=== PATIENT | male | born 1950 | race Caucasian/White ===

== ENCOUNTER 2017-05-02 13:54 | Emergency (ER) | payer MEDICARE ==
[~2017-05-02] VITALS: Ht 188 cm; Wt 95.0 kg
[2017-05-02 13:59] VITALS: BP 142/81; PULSE 61; RESP 16; TEMP 100.4; O2SAT 100
[2017-05-02 14:13] VITALS: BP 149/89; PULSE 63; RESP 13; O2SAT 99
[2017-05-02] MEDS ORDERED: LOSA100T7 (14:15)
--- NOTE | 2017-05-02 16:04 | RADRPT ---
EXAM DATE/TIME: 05/02/2017 15:47 [facility] COMPARISON: No previous studies available for comparison. INDICATIONS : Trauma, fall from ladder today onto head. RADIATION DOSE: 36.51 CTDIvol (mGy) MEDICAL HISTORY : Aneurysm, abdominal. Hypertension. SURGICAL HISTORY : None. ENCOUNTER: Initial ACUITY: 1 day PAIN SCALE: 7/10 LOCATION: Bilateral occipital head TECHNIQUE: Multiple contiguous axial images were obtained of the head. Using automated exposure control and adj ustment of the mA and/or kV according to patient size, radiation dose was kept as low as reasonably a chievable to obtain optimal diagnostic quality images. DICOM format image data is available electro nically for review and comparison. FINDINGS: CEREBRUM: The ventricles are normal for age. No evidence of midline shift, mass lesion, hemorrhage or acute in farction. No extra-axial fluid collections are seen. POSTERIOR FOSSA: The cerebellum and brainstem are intact. The 4th ventricle is midline. The cerebellopontine angle i s unremarkable. EXTRACRANIAL: The visualized portion of the orbits is intact. SKULL: The calvaria is intact. No evidence of skull fracture. CONCLUSION: 1. No acute intracranial abnormalities. Cameron Rodgers MD on May 02, 2017 at 15:59 Board Certified Radiologist. This report was verified electronically.
--- NOTE | 2017-05-02 16:07 | RADRPT ---
EXAM DATE/TIME: 05/02/2017 15:47 [facility] COMPARISON: No previous studies available for comparison. INDICATIONS : Trauma, fall from ladder today onto head. RADIATION DOSE: 22.40 CTDIvol (mGy) MEDICAL HISTORY : Aneurysm, abdominal. Hypertension. SURGICAL HISTORY : None. ENCOUNTER: Initial ACUITY: 1 day PAIN SCALE: 5/10 LOCATION: Bilateral neck TECHNIQUE: Volumetric scanning of the cervical spine was performed. Multiplanar reconstructions in the sagittal, coronal and oblique axial planes were performed. Using automated exposure control and adjustment o f the mA and/or kV according to patient size, radiation dose was kept as low as reasonably achievable to obtain optimal diagnostic quality images. DICOM format image data is available electronically f or review and comparison. FINDINGS: Thin section axial imaging of the cervical spine was performed. Sagittal and coronal imaging demonstrate adequate alignment of the vertebral bodies. No acute fractur es identified. C1/2: There are mild degenerative changes in the atlantodens joint. C2/3: The thecal space is adequate. The neural foramina are adequate. No significant abnormality is identif ied. C3/4: There is mild facet arthritis bilaterally. The thecal space and foramina are adequate. C4/5: The thecal space and neural foramina are adequate. There is mild facet arthritis on the left. C5/6: The thecal space and neural foramina appear adequate. There is mild facet arthritis bilaterally. C6/7: There is a degenerated disc. There is a small broad-based disc bulge. There is diffuse osteophytic ri dging of vertebral endplates. There is mild facet arthritis bilaterally. The thecal space and foramin a are adequate. C7/T1: The thecal space is adequate. The neural foramina are adequate. No significant abnormality is identif ied. CONCLUSION: 1. Degenerative changes throughout the cervical spine as noted above. 2. No acute cervical spine fracture identified. Beto Whitt MD on May 02, 2017 at 16:01 Board Certified Radiologist. This report was verified electronically.
--- NOTE | 2017-05-02 16:44 | PD ---
HPI Chief Complaint: Fall Time Seen by Provider: 15:08 Travel History International Travel<30 days: No Contact w/Intl Traveler<30days: No Traveled to known affect area: No History of Present Illness HPI This is a 66-year-old male with no significant past medical history, who presents with complaints of head pain. The patient was cutting branches on a tree when the ladder slipped out from under him. He states he is roughly 10 feet up. He states he immediately grabbed hold of the tree and then pushed himself backwards onto the grass. He states when he fell backwards he struck the back of his head. who witnessed this states that he was confused and not answering questions for roughly 35-40 seconds. The patient had no other injury. He denies any neck pain back pain. He denies any abdominal pain. He does state that he thought he may have twisted his left ankle however he is able to bend it and flex it without difficulty and there is no pain with ambulation. The patient does have a history of a small aortic aneurysm. He states this is being followed by his doctor. He denies any abdominal pain at the time of my evaluation. PFSH Past Medical History Cardiovascular Problems: Yes (small AAA) High Cholesterol: Yes Hypertension: Yes Tetanus Vaccination: Unknown Influenza Vaccination: Yes Social History Alcohol Use: Yes (red wine daily, 2-3 glasses) Tobacco Use: No Substance Use: No Allergies-Medications (Allergen,Severity, Reaction): Coded Allergies: No Known Allergies (Unverified , 05/02/17) Reported Meds & Prescriptions Reported Meds & Active Scripts Active Reported Losartan-Hctz 100-25 mg Tab (Losartan/Hydrochlorothiazide) 100 Mg-25 Mg Tablet Review of Systems Except as stated in HPI: all other systems reviewed are Neg General / Constitutional: No: Fever, Chills HENT: Positive: Headaches, No: Neck Pain (Posterior occipital) Cardiovascular: No: Chest Pain or Discomfort, Palpitations Respiratory: No: Cough, Shortness of Breath Gastrointestinal: No: Nausea, Vomiting, Abdominal Pain Genitourinary: No: Incontinence Musculoskeletal: No: Weakness, Pain Neurologic: Positive: Headache, Other (Questionable decreased consciousness for 35-40 seconds. Normal now.), No: Weakness, Dizziness, Incontinence, Seizures, Sensory Disturbance Physical Exam Narrative GENERAL: Well-developed well-nourished male in no acute respiratory distress. SKIN: Focused skin assessment warm/dry. HEAD: Normocephalic. Subjective tenderness to the posterior occiput. No deformity or laceration or edema noted. EYES: Pupils equal and round. No scleral icterus. No injection or drainage. ENT: No nasal bleeding or discharge. Mucous membranes pink and moist. NECK: Trachea midline. Supple. CARDIOVASCULAR: Regular rate and rhythm. No murmur appreciated. RESPIRATORY: No accessory muscle use. Clear to auscultation. Breath sounds equal bilaterally. GASTROINTESTINAL: Abdomen soft, non-tender, nondistended. Hepatic and splenic margins not palpable. MUSCULOSKELETAL: No obvious deformities. No clubbing. No cyanosis. No edema. NEUROLOGICAL: Awake and alert. No obvious cranial nerve deficits. Motor grossly within normal limits. Normal speech. PSYCHIATRIC: Appropriate mood and affect; insight and judgment normal. Data Data Last Documented VS Vital Signs Date Time Temp Pulse Resp B/P (MAP) Pulse Ox O2 Delivery O2 Flow Rate FiO2 05/02/17 14:13 63 13 149/89 (109) 99 Room Air 05/02/17 13:[address] Brain W/O Iv Contrast(Rout) (05/02/17 15:23) Ct Cerv Spine W/O Contrast (05/02/17 15:23) MDM Medical Decision Making Medical Screen Exam Complete: Yes Emergency Medical Condition: Yes Differential Diagnosis Intracranial injury versus concussion versus scalp hematoma versus cervical spine injury. Narrative Course 66-year-old male who status post fall from 10 feet while cutting a tree. The patient had no loss of consciousness however was unresponsive to questions for 35-40 seconds. The patient has no focal neurologic deficit. He has pain in his occiput area. There is no vomiting. No diplopia. CT of the brain and C- spine show no evidence of acute injury. The patient likely has a concussion. He will be discharged home. His will be with him. She will be given a head injury sheet. He is instructed to return if he has any change in mental status, nausea vomiting. Or any other reason that concerns them. Diagnosis Primary Impression: Closed head injury with concussion Additional Impression: Mechanical fall Additional Instructions: Head injury precautions. Return if not acting normal, nausea vomiting, or any other reason. Tylenol for discomfort. Disposition: DISCHARGE HOME Condition: Stable Kip Morales MD May 02, 2017 16:44
== END 2017-05-02 17:07 | disposition home or self-care (01) ==
LOC: NEPE 13:54
DX: S06.0X9A Concussion with loss of consciousness of unspecified duration, initial encounter (principal); W11.XXXA Fall on and from ladder, initial encounter; Y93.H2 Activity, gardening and landscaping
CPT/HCPCS: 70450; 72125; 99283